=== PATIENT | female | born 1995 | race Hispanic/Latino ===

== ENCOUNTER 2024-07-02 15:50 | Emergency (ER) | payer BC ==
[~2024-07-02] VITALS: Ht 152.4 cm; Wt 58.1 kg
[2024-07-02] MEDS: 0.9%NACL 1000ML 1,000 ML IV STA (18:25)
[2024-07-02] MEDS: ONDANSETRON 4MG INJ IVP STA (18:26)
[2024-07-02] MEDS: DICYCLOMINE HCL 20 MG TAB PO STA (18:26)
[2024-07-02 18:57] LABS: BASOPHILS # (AUTO) 0.01 K/uL (0.00-0.20); BASOPHILS % (AUTO) 0.1 % (0.0-5.0); EOSINOPHILS # (AUTO) 0.03 K/uL (0.00-0.70); EOSINOPHILS % (AUTO) 0.3 % (0.0-8.0); HEMATOCRIT 39.4 % (36-48); IMMATURE GRANULOCYTE ABSOLUTE 0.02 K/uL (0-1); LYMPHOCYTES # (AUTO) 0.6 K/uL (1.0-4.8); LYMPHOCYTES % (AUTO) 6.1 % (21.0-51.0); MEAN CORPUSCULAR HGB CONC 32.7 g/dL (32.0-36.0); MEAN CORPUSCULAR VOLUME 85.7 fL (79-99); MONOCYTES # (AUTO) 0.3 K/uL (0.1-1.0); MONOCYTES % (AUTO) 3.1 % (3.0-13.0); NEUTROPHILS # (AUTO) 8.9 K/uL (1.8-7.7); NEUTROPHILS % (AUTO) 90.2 % (40.0-77.0); PLATELET COUNT (AUTO) 167 K/uL (130-400); RED CELL DISTRIBUTION WIDTH 12.8 % (11.0-15.5); WHITE BLOOD COUNT (AUTO) 9.8 K/uL (4.8-10.8)
[2024-07-02 19:08] LABS: CREATININE 0.9 mg/dL (0.5-1.0); POTASSIUM 3.9 mmol/L (3.5-5.1)
[2024-07-02 19:18] LABS: ALBUMIN 3.7 g/dL (3.5-5.0); BILIRUBIN,TOTAL 1.8 mg/dL (0.2-1.0); TOTAL PROTEIN, SERUM 8.2 g/dL (6.0-8.3)
[2024-07-02 20:14] VITALS: BP 127/61; PULSE 91; RESP 18; TEMP 99.7; O2SAT 96
[2024-07-02] MEDS ORDERED: ONDA-243 PO (20:14)
[2024-07-02] MEDS ORDERED: FAMO-136 PO (20:14)
== END 2024-07-02 20:24 | disposition home or self-care (01) ==
LOC: EDH 15:50
DX: K52.9 Noninfective gastroenteritis and colitis, unspecified (principal); K21.9 Gastro-esophageal reflux disease without esophagitis; R10.2 Pelvic and perineal pain
CPT/HCPCS: 99284; 96374; 96361; 80053; 84702; 85025; 36415; J7030; J2405